=== PATIENT | female | born 1960 | race Caucasian/White ===

== ENCOUNTER 2016-11-13 12:58 | Outpatient (CLI) | payer MEDICAID ==
--- NOTE | 2016-11-14 10:55 | Ultrasound Report ---
LIMITED ABDOMINAL ULTRASOUND: 11/13/2016 CLINICAL HISTORY: A 56-year-old female who had a TRAM flap for breast reconstruction surgery. The T BRENNAN flap involved the lower half of the abdomen with a mesh placed along the anterior aspect of the a bdominal wall. The left side of the surgical incision site in the lower half of the abdomen showed d elayed healing. Patient had subsequently developed pain and a mass in this region. Present ultrasou nd is being done to evaluate this mass. TECHNIQUE: Real-time scanning was performed with floor representative static images obtained. FINDINGS: Along the left side of the prior hernia repair in the lower half of the abdomen below the level of the umbilicus, the mesh appears to be mildly elevated from the anterior abdominal wall. Thi s elevation amounts to 0.4 cm. There is a small break in the most lateral aspect of this mesh along the left side of the abdomen. The defect in periphery of this mesh shows a 2 mm gap. Immediately anterior and posterior to the elevated portion of the mesh is noted a fluid collection. The size of this fluid collection is 3.25 x 1 x 2.24 cm. It may represent a seroma. Secondary possi bility is an area of fat necrosis within the subcutaneous soft tissues in and about the mesh. The anterior abdominal wall beneath the mesh appears intact. No evidence of a ventral or incisional hernia is seen. IMPRESSION: 1. EXAMINATION IS NEGATIVE FOR AN INCISIONAL OR VENTRAL HERNIA. 2. THERE IS SURGICAL MESH NOTED ACROSS THE LOWER HALF OF THE ABDOMEN INFERIOR TO THE UMBILICUS. THE LEFT SIDE OF THIS MESH APPEARS TO BE ELEVATED WITH A SMALL BREAK IN THE LEFT LATERAL ASPECT OF THE M ESH. THE MESH ALONG THE LEFT LATERAL HALF OF THE LOWER ABDOMEN APPEARS ELEVATED. SURROUNDING THE ME SH ALONG THE LEFT LOWER HALF OF THE ABDOMEN IS A FLUID COLLECTION MEASURING 3.25 X 1 X 2.24 CM. THIS FLUID COLLECTION MOST LIKELY REPRESENTS A SEROMA OR AREA OF FAT NECROSIS. JOB #: [id number] EXT JOB #:[id number]
== END 2016-11-13 12:59 | disposition home or self-care (01) ==
LOC: DI 12:58
PROVIDERS: ATTEND Nurse Practitioner Family
DX: T85.618A Breakdown (mechanical) of other specified internal prosthetic devices, implants and grafts, initial encounter (principal)
CPT/HCPCS: 76705

== ENCOUNTER 2017-03-29 10:38 | Outpatient (CLI) | payer MEDICAID ==
--- NOTE | 2017-03-29 14:09 | XRAY Report ---
TWO VIEW CHEST: 03/29/2017 CLINICAL INDICATION: Abnormal breath sounds, history of tobacco use. COMPARISON: 10/27/2015. FINDINGS: Frontal and lateral views of the chest demonstrate a normal cardiac silhouette. The lungs are clear. No effusion or pneumothorax is present. IMPRESSION: NORMAL CHEST. JOB #: [id number] EXT JOB #:[id number]
== END 2017-03-29 10:39 | disposition home or self-care (01) ==
LOC: DI.S 10:38
PROVIDERS: ATTEND Nurse Practitioner Family
DX: R09.89 Other specified symptoms and signs involving the circulatory and respiratory systems (principal); F17.200 Nicotine dependence, unspecified, uncomplicated
CPT/HCPCS: 71020

== ENCOUNTER 2017-07-01 08:31 | Outpatient (CLI) | payer MEDICAID ==
--- NOTE | 2017-07-01 16:25 | DEXA Report ---
DEXA SCAN: 07/01/2017 CLINICAL INDICATION: Osteopenia. TECHNIQUE: Dual energy x-ray absorptiometry (DXA) was performed on a [employer] system. Regions measured are the AP spine, femoral neck, and, if needed, forearm. COMPARISON: None. In accordance with the International Society for Clinical Densitometry (ISCD) guidelines, data from previous exams may be reanalyzed using current recommendations and techniques. This is done to allow a more accurate basis for comparison with the current study. FINDINGS The data for the lumbar spine is as follows: REGION BMD (g/cm/cm) T-SCORE Z-SCORE L1 1.208 0.7 1.5 L2 1.136 -0.5 0.3 L3 1.241 0.3 1.1 L4 1.262 0.5 1.3 TOTAL 1.214 0.3 1.1 NOTE: All evaluable vertebrae are used for classification. The data for the hip is as follows: REGION BMD (g/cm/cm) T-SCORE Z-SCORE Neck 0.868 -1.2 -0.2 TOTAL 0.964 -0.3 0.3 NOTE: The femoral neck or total proximal femur, whichever is lowest, is used for classification. IMPRESSION THE WHO CLASSIFICATION BASED ON THE INTERNATIONAL REFERENCE STANDARD IS OSTEOPENIA (REFERENCE LEFT FEMORAL NECK.) THE FRACTURE RISK IS INCREASED. RECOMMENDATION: Patients with diagnosis of osteoporosis or osteopenia should have regular bone mineral density assessment. For those eligible for Medicare, routine testing is allowed once every 2 years. Testing frequency can be increased for patients who have rapidly progressing disease or for those who are receiving medical therapy to restore bone mass. COMMENT: World Health Organization (WHO) definitions for osteoporosis and osteopenia: NORMAL BMD: T-score at 1.0 or higher, fracture risk is low. OSTEOPENIA BMD: T-score between 1.0 and -2.5, fracture risk is increased. OSTEOPOROSIS BMD: T-score at 2.5 or lower, fracture risk high. National Osteoporosis Foundation recommends: 1. Obtain adequate dietary calcium (at least 1200 mg per day) and vitamin D (400 -800 international units per day). 2. Participate, as appropriate, in regular weightbearing and muscle- strengthening exercise. 3. Avoid tobacco use and reduce alcohol and caffeine intake. 4. For more detailed information see the website at www.NOF.org. TD: 07/01/2017 12:46 SUZANNA
== END 2017-07-01 08:32 | disposition home or self-care (01) ==
LOC: DI 08:31
PROVIDERS: ATTEND Specialist
DX: M85.88 Other specified disorders of bone density and structure, other site (principal)
CPT/HCPCS: 77080

== ENCOUNTER 2017-10-23 17:05 | Emergency (ER) | payer MEDICAID ==
[2017-10-23 17:19] VITALS: BP 125/90
--- NOTE | 2017-10-23 17:39 | ED Physician Documentation ---
History of Present Illness - Stated complaint Stated Complaint: VOMITING/LEAKING FROM ABD/BELLY BUTTON - Chief complaint Chief Complaint: Wound - History obtained from History obtained from: Patient, Family - History of Present Illness Timing: How many weeks ago (2) Pain level max: 5 Pain level now: 4 Improved by: drained Worsened by: palpation - Additonal information Additional information: Patient is a 57-year-old female who states that she has had redness and swelling to the lower abdomen for the past 2 weeks. Was placed on an unknown antibiotic by her doctor. States that it started draining pus today and was told to come in for evaluation. upon clinic chart review - she was on bactrim. Review of Systems Constitutional: denies: Fever, Chills Nose: denies: Rhinorrhea / runny nose, Congestion Throat: denies: Sore throat Cardiac: denies: Chest pain / pressure Respiratory: denies: Dyspnea GI: reports: Nausea, Vomiting (once yesterday, none today). 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 - Present Medications Home Medications: Ambulatory Orders Medication Instructions Recorded Confirmed Cholecalciferol (Vitamin D3) 1,000 unit PO 10/23/17 [Vitamin D3] Clindamycin HCl [Clindamycin 300MG 300 mg PO Q6H #28 capsule 10/23/17 CAP] Cyanocobalamin (Vitamin B-12) 1,000 mcg PO 10/23/17 [Vitamin B-12] [place]-3/Dha/Epa/Fish Oil [[place] 3 1 cap ORAL DAILY 10/23/17 10/23/17 500 Softgel] Pediatric Multivit #36/Iron 10 mg PO 10/23/17 [Vitalets Tablet Chewable] - Allergies Allergies/Adverse Reactions: Allergies Allergy/AdvReac Type Severity Reaction Status Date / Time liquid hydrocodone Allergy Hallucinati Uncoded 10/23/17 17:57 ons PD ED PE NORMAL - Vitals Vital signs reviewed: Yes - General General: Alert and oriented X 3, No acute distress, Well developed/nourished - HEENT HEENT: Moist mucous membranes - Neck Neck: Supple, no meningeal sign - Cardiac Cardiac: RRR - Respiratory Respiratory: No respiratory distress, Clear bilaterally - Abdomen Abdomen: Normal bowel sounds, Soft, Non tender, Non distended, Other (4 x 5 cm area of erythema with mild induration to the left lower abdomen. Appears to spontaneously drained purulent fluid.) - Back Back: No CVA TTP - Derm Derm: Warm and dry - Neuro Neuro: Alert and oriented X 3 - Psych Psych: Normal mood, Normal affect Results - Vitals Vitals: Oxygen O2 Source room - Labs Labs: Microbiology 10/23/17 17:30 Wound Culture - Final Abscess No growth Laboratory Tests 10/23/17 10/23/17 17:46 17:46 WBC 10.9 H RBC 4.49 Hgb 14.8 Hct 44.3 MCV 98.7 MCH 33.0 H MCHC 33.5 RDW 13.2 Plt Count 340 MPV 6.9 L Neut # (Auto) 5.5 Lymph # (Auto) 4.3 H [place] # (Auto) 0.6 Eos # (Auto) 0.4 Baso # (Auto) 0.1 Absolute Nucleated RBC 0.01 Nucleated RBC % 0.1 Sodium 138 Potassium 3.5 Chloride 107 Carbon Dioxide 23 Anion Gap 8.0 BUN 13 Creatinine 0.7 Estimated GFR (MDRD) 86 L Glucose 161 H Calcium 9.3 Total Bilirubin 0.2 AST 52 H ALT 109 H Alkaline Phosphatase 150 H Total Protein 6.7 Albumin 3.6 Globulin 3.1 Albumin/Globulin Ratio 1.2 Lipase 33 - Rads (name of study) Right upper quadrant ultrasound Radiology: Prelim report reviewed, EMP read contemporaneously, See rad report ( Gallstones. No sonographic evidence of acute cholecystitis. Probable adenomyomatosis of the gallbladder. Mild fatty liver. No mass. Normal pancreas of the common bile duct.) PD MEDICAL DECISION MAKING - ED course Complexity details: reviewed results, re-evaluated patient, considered differential, d/w patient, d/w family ED course: Patient is a 57-year-old female with a mild cellulitis to the left lower abdominal wall. No evidence of intraperitoneal infection. Did have an abscess which appears to spontaneously drained. No further abscess to drain at this time. Did have elevations of her liver function tests, therefore a ultrasound was ordered which shows gallstones and adenomyomatosis, but no other acute findings. No acute cholecystitis. Will place on antibiotics and follow-up closely with her doctor. Patient counseled regarding signs and symptoms for which I believe and urgent re-evaluation would be necessary. Patient with good understanding of and agreement to plan and is comfortable going home at this time This document was made in part using voice recognition software. While efforts are made to proofread this document, sound alike and grammatical errors may occur. - Sepsis Event Vital Signs: Oxygen O2 Source room Departure - Departure Disposition: Home, Self Care Clinical Impression: Cellulitis and abscess of trunk Condition: Good Instructions: ED Abscess IandD, ED Infec Skin Cellulitis Follow-Up: Irena Blood ARNP [Primary Care Provider] - Within 3 Days Prescriptions: Clindamycin HCl [Clindamycin 300MG CAP] 300 mg PO Q6H #28 capsule Comments: Take all antibiotics until gone. Return if you worsen. You do have mildly elevated liver tests as well as gallstones in your gallbladder. It does not appear infected at this time. Return if you develop right upper quadrant pain, persistent vomiting or fevers. Discharge Date/Time: 10/23/17 19:43
[2017-10-23 17:52] LABS: BASOPHILS # (AUTO) 0.1 10^3/uL (0.0-0.1); BASOPHILS % (AUTO) 1.3 %; EOSINOPHILS # (AUTO) 0.4 10^3/uL (0.0-0.7); EOSINOPHILS % (AUTO) 3.4 %; HGB - HEMOGLOBIN 14.8 g/dL (12.0-16.0); LYMPHOCYTES # (AUTO) 4.3 10^3/uL (1.5-3.5); LYMPHOCYTES % (AUTO) 39.4 %; MEAN CORPUSCULAR HGB CONC 33.5 g/dL (32.0-36.0); MEAN CORPUSCULAR VOLUME 98.7 fL (81.0-99.0); MEAN PLATELET VOLUME 6.9 fL (7.9-10.8); MONOCYTES # (AUTO) 0.6 10^3/uL (0.0-1.0); MONOCYTES % (AUTO) 5.7 %; NEUTROPHILS # (AUTO) 5.5 10^3/uL (1.5-6.6); NEUTROPHILS % (AUTO) 50.2 %; PLT - PLATELET COUNT 340 10^3/uL (130-450); RED BLOOD COUNT 4.49 10^6/uL (4.20-5.40); RED CELL DISTRIBUTION WIDTH 13.2 % (12.0-15.0); WHITE BLOOD COUNT 10.9 x10^3/uL (4.8-10.8)
[2017-10-23 18:08] LABS: ALBUMIN 3.6 g/dL (3.2-5.5); ALBUMIN/GLOBULIN RATIO 1.2 (1.0-2.2); BILIRUBIN,TOTAL 0.2 mg/dL (0.2-1.0); CALCIUM 9.3 mg/dL (8.5-10.3); CREATININE 0.7 mg/dL (0.4-1.0); TOTAL PROTEIN 6.7 g/dL (6.7-8.2)
[2017-10-23] MEDS ORDERED: LIDOCAINE 1% 2 ML VIAL SUBQ ONE (19:26)
[2017-10-23] MEDS ORDERED: cefTRIAXone 1 GM VIAL IM STA (19:26)
--- NOTE | 2017-10-23 19:50 | Ultrasound Report ---
Procedure Date: 10/23/2017 Accession Number: [id number] / [id number] Procedure: US - Abdomen Limited CPT Code: FULL RESULT: EXAM: ABDOMEN ULTRASOUND LIMITED, RIGHT UPPER QUADRANT. EXAM DATE: 10/23/2017 07:14 PM. CLINICAL HISTORY: Right upper quadrant pain, elevated LFTs. COMPARISON: None. TECHNIQUE: Real-time scanning was performed with static images obtained. FINDINGS: Liver: Liver parenchyma is heterogeneous and moderately hyperechoic. No discrete liver masses or intrahepatic bile duct dilation. However, evaluation for masses is limited secondary to the echogenicity. 16.6 cm. Main portal vein flow: Hepatopetal. Gallbladder: 0.4 mm non-mobile echogenic focus adherent to the gallbladder wall with associated ringdown artifact. Multiple gallstones with sludge. No gallbladder wall thickening or pericholecystic fluid. Per report, the patient had a negative sonographic Stewart sign. Biliary System: CBD measures 4 mm. No intrahepatic or extrahepatic ductal dilatation. Pancreas: Normal. Right kidney: 10.8 cm. No hydronephrosis. Other: None. IMPRESSION: 1. Gallstones. No sonographic evidence of acute cholecystitis. Probable adenomyomatosis of the gallbladder. 2. Mildly fatty liver. No mass. Normal pancreas and common bile duct. RADIA
== END 2017-10-23 19:43 | disposition home or self-care (01) ==
LOC: ED 17:05
DX: L03.319 Cellulitis of trunk, unspecified (principal); R74.8 Abnormal levels of other serum enzymes; K80.80 Other cholelithiasis without obstruction; K76.0 Fatty (change of) liver, not elsewhere classified; K82.8 Other specified diseases of gallbladder
CPT/HCPCS: 36415; 76705; 80053; 83690; 85025; 87070; 87205; 96372; 99283

== ENCOUNTER 2017-10-29 13:03 | Outpatient (CLI) | payer MEDICAID | END 2017-10-29 13:04 | disposition home or self-care (01) | LOC: LAB.R 13:03 | PROVIDERS: ATTEND Nurse Practitioner Family | DX: L08.9 Local infection of the skin and subcutaneous tissue, unspecified (principal) | CPT/HCPCS: 87070; 87205 ==

== ENCOUNTER 2018-04-12 20:50 | Emergency (ER) | payer SELFPAY ==
--- NOTE | 2018-04-12 21:03 | ED Physician Documentation ---
History of Present Illness - Stated complaint Stated Complaint: SWOLLEN FOREHEAD/FACE - Chief complaint Chief Complaint: Allergic Rx - History obtained from History obtained from: Patient - History of Present Illness Timing: How many days ago (2) Pain level now: 8 Improved by: nothing Worsened by: palpation (tender to touch) - Additonal information Additional information: 2 days ago, patient noticed raised area of redness on her forehead with small, clear blisters. She popped the blisters and clear fluids was expressed. Since then (over past 2 days), the area of raised redness has spread across most of forehead and down to left periorbit. She notes tender, swollen lymph nodes beh ind both ears, worse on left. 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 - Past Surgical History Past Surgical History: Yes General: Other /WORKPLACE TRAINER AND ASSESSOR: Mastectomy - Present Medications Home Medications: Ambulatory Orders Medication Instructions Recorded Confirmed Cholecalciferol (Vitamin D3) 1,000 unit PO 10/23/17 [Vitamin D3] Cyanocobalamin (Vitamin B-12) 1,000 mcg PO 10/23/17 [Vitamin B-12] [place]-3/Dha/Epa/Fish Oil [[place] 3 1 cap ORAL DAILY 10/23/17 10/23/17 500 Softgel] Pediatric Multivit #36/Iron 10 mg PO 10/23/17 [Vitalets Tablet Chewable] Cephalexin [Keflex] 500 mg PO Q6H #28 capsule 04/12/18 Sulfamethox/Trimeth 800/160 1 each PO BID #14 tablet 04/12/18 [Bactrim Ds 800/160] - Allergies Allergies/Adverse Reactions: Allergies Allergy/AdvReac Type Severity Reaction Status Date / Time liquid hydrocodone Allergy Hallucinati Uncoded 04/12/18 21:01 ons - Social History Does the pt smoke?: Yes Smoking Status: Current every day smoker Does the pt have substance abuse?: No PD ED PE NORMAL - Vitals Vital signs reviewed: Yes - General General: Alert and oriented X 3, No acute distress, Well developed/nourished - HEENT HEENT: PERRL, EOMI - Neck Neck: Supple, no meningeal sign PD ED PE EXPANDED - HEENT HEENT Visual: 1 - rash (confluent, raised erythema, TTP, no fluctuance) 2 - rash (contiguous with area marked as "1": rasied erythema with sharp margins. There is left periorbital swelling, predominantly upper lid) - Derm Derm: Rash (as documented under "HEENT") Results - Vitals Vitals: Vital Signs - 24 hr 04/12/18 04/12/18 20:56 21:42 Temperature 36.8 C 36.4 C L Heart Rate 110 H 107 H Respiratory 18 18 Rate Blood Pressure 127/82 H 124/87 H O2 Saturation 97 96 Oxygen O2 Source Room air PD MEDICAL DECISION MAKING - ED course Complexity details: considered differential, d/w patient ED course: exam is c/w facial cellulitis. crosses midline and only a single ruptured bulla (thus not c/w zoster). Vision is not affected, there is no proptosis, extraocular muscles are intact, and patient denies eye pain (thus not s/o orbital cellulitis). No emergent testing indicated at this time, and patient understands she is to return immediately if worse in any way including development of new signs/symptoms (such as fever, visual changes) Departure - Departure Disposition: 01 Home, Self Care Clinical Impression: Cellulitis of face Condition: Good Instructions: ED Cellulitis Facial Follow-Up: Irena Blood FILLING LAYER UP [Primary Care Provider] - (3-4 days if not improving) Prescriptions: Cephalexin [Keflex] 500 mg PO Q6H #28 capsule Sulfamethox/Trimeth 800/160 [Bactrim Ds 800/160] 1 each PO BID #14 tablet Discharge Date/Time: 04/12/18 21:44
[2018-04-12] MEDS ORDERED: LIDOCAINE 1% 2 ML VIAL SUBQ ONE (21:19)
[2018-04-12] MEDS ORDERED: cefTRIAXone 1 GM VIAL IM STA (21:19)
[2018-04-12] MEDS ORDERED: SULFAMETH/TRIMETH DS 800/160 MG TABLET PO STA (21:20)
[2018-04-12 21:50] VITALS: BP 124/87
== END 2018-04-12 21:44 | disposition home or self-care (01) ==
LOC: ED 20:50
DX: L03.211 Cellulitis of face (principal); F17.200 Nicotine dependence, unspecified, uncomplicated
CPT/HCPCS: 96372; 99283; A9270

== ENCOUNTER 2018-04-15 05:18 | Observation (INO) | payer SELFPAY ==
[2018-04-15] MEDS ORDERED: CLINDAMYCIN 600 MG/50 ML 50 ML IV ONE (05:45)
--- NOTE | 2018-04-15 05:48 | ED Physician Documentation ---
History of Present Illness - Stated complaint Stated Complaint: FELA EYE SWELLING - Chief complaint Chief Complaint: General - Additonal information Additional information: hx from pt 57 y/o f 4 days ago had a headache and red line to L forehead - no trauma, no insect bite, no new soaps detergent lotions etc next day has blisters and scabs and erythema seen in ED, dx facial cellulitis, rx bactrim keflex she has had 2 + days of compliance with bactrim and keflex but sx persist and are worse no fever she has no insurance and is worried about cost Review of Systems Constitutional: denies: Fever Cardiac: denies: Chest pain / pressure Respiratory: denies: Dyspnea Skin: reports: Rash PD PAST MEDICAL HISTORY - Past Medical History Past Medical History: Yes Cardiovascular: None Respiratory: None Neuro: None Endocrine/Autoimmune: None GI: None 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, Breast cancer : None HEENT: None Psych: None Musculoskeletal: None Derm: None - Past Surgical History Past Surgical History: Yes General: Other /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: Mastectomy - Present Medications Home Medications: Ambulatory Orders Medication Instructions Recorded Confirmed Cholecalciferol (Vitamin D3) 1,000 unit PO 10/23/17 [Vitamin D3] Cyanocobalamin (Vitamin B-12) 1,000 mcg PO 10/23/17 [Vitamin B-12] [place]-3/Dha/Epa/Fish Oil [[place] 3 1 cap ORAL DAILY 10/23/17 10/23/17 500 Softgel] Pediatric Multivit #36/Iron 10 mg PO 10/23/17 [Vitalets Tablet Chewable] Cephalexin [Keflex] 500 mg PO Q6H #28 capsule 04/12/18 Sulfamethox/Trimeth 800/160 1 each PO BID #14 tablet 04/12/18 [Bactrim Ds 800/160] Clindamycin HCl [Clindamycin 300MG 300 mg PO Q6H 7 Days capsule 04/15/18 CAP] Saccharomyces Boulardii [Florastor] 500 mg PO BID #40 capsule 04/15/18 - Allergies Allergies/Adverse Reactions: Allergies Allergy/AdvReac Type Severity Reaction Status Date / Time liquid hydrocodone Allergy Hallucinati Uncoded 04/15/18 05:30 ons - Social History Does the pt smoke?: Yes Smoking Status: Current every day smoker Does the pt drink ETOH?: Yes Does the pt have substance abuse?: No - Immunizations Immunizations are current?: Yes - POLST Patient has POLST: No PD ED PE NORMAL - Vitals Vital signs reviewed: Yes - HEENT HEENT: Other (marked facial edema wramth and erythema, primarily to upper face - eyelids up and left > right, some regions of eschar with yellow crusting c/w strep, lids almost swolln shut but when held open PERRL no proptosis and EOMI s pain, no crepitus or necrosis) - Neck Neck: Supple, no meningeal sign - Cardiac Cardiac: RRR, No murmur - Respiratory Respiratory: No respiratory distress, Clear bilaterally Results - Vitals Vitals: Vital Signs - 24 hr 04/15/18 04/15/18 05:28 06:23 Temperature 36.5 C Heart Rate 101 H 75 Respiratory 17 15 Rate Blood Pressure 120/71 102/70 O2 Saturation 98 93 Oxygen O2 Source Room air - Labs Labs: Laboratory Tests 04/15/18 04/15/18 05:50 05:50 WBC 8.3 RBC 4.78 Hgb 16.2 H Hct 45.6 MCV 95.3 MCH 33.8 H MCHC 35.4 RDW 13.0 Plt Count 272 MPV 6.9 L Neut # (Auto) 4.9 Lymph # (Auto) 2.2 [place] # (Auto) 0.8 Eos # (Auto) 0.3 Baso # (Auto) 0.1 Absolute Nucleated RBC 0.01 Nucleated RBC % 0.1 Sodium 137 Potassium 3.6 Chloride 106 Carbon Dioxide 20 L Anion Gap 11.0 BUN 12 Creatinine 0.9 Estimated GFR (MDRD) 64 L Glucose 123 H Calcium 9.0 PD MEDICAL DECISION MAKING - ED course ED course: facial cellulitis, most c.w staph or strep exam not c/w orbital cellulitis no ACEVES now to suggest intracranial extension complication has worsened after 2 days of comlaint tx with bactrim fkeflex I suggested admit for IV ab but pt vehemently declines 2/2 expense so will tx IV clinda and change PO meds to clinda and close fup with PMD pt clearly understands my recommendation to be admitted Departure - Departure Clinical Impression: Cellulitis of face Condition: Fair Instructions: ED Cellulitis Facial Follow-Up: Irena Blood ARNP [Primary Care Provider] - ( for a recheck after 2 ER visits) Prescriptions: Clindamycin HCl [Clindamycin 300MG CAP] 300 mg PO Q6H 7 Days capsule Saccharomyces Boulardii [Florastor] 500 mg PO BID #40 capsule Comments: I recommended admission for IV antibiotics but you declined. By not staying for IV antibiotics you are risking worsening of the infection, possible spread to the eyes or brain or blood stream, worsening disease process, even sepsis or etc. We gave you a dose of IV antibiotics in the ER And have prescribed oral clindamycin for you to take at home instead of the bactrim and keflex previously prescribed Be sure to take a probiotic while on clindamycin to prevent diarrhea Also take claritin 10 mg every day in case there is an allergic component to the swelling Follow up with your PMD for a recheck Return if worse in any way
[2018-04-15 05:54] LABS: BASOPHILS # (AUTO) 0.1 10^3/uL (0.0-0.1); BASOPHILS % (AUTO) 1.2 %; EOSINOPHILS # (AUTO) 0.3 10^3/uL (0.0-0.7); EOSINOPHILS % (AUTO) 4.2 %; HGB - HEMOGLOBIN 16.2 g/dL (12.0-16.0); LYMPHOCYTES # (AUTO) 2.2 10^3/uL (1.5-3.5); LYMPHOCYTES % (AUTO) 26.6 %; MEAN CORPUSCULAR HEMOGLOBIN 33.8 pg (27.0-31.0); MEAN CORPUSCULAR HGB CONC 35.4 g/dL (32.0-36.0); MEAN CORPUSCULAR VOLUME 95.3 fL (81.0-99.0); MEAN PLATELET VOLUME 6.9 fL (7.9-10.8); MONOCYTES # (AUTO) 0.8 10^3/uL (0.0-1.0); MONOCYTES % (AUTO) 9.2 %; NEUTROPHILS # (AUTO) 4.9 10^3/uL (1.5-6.6); NEUTROPHILS % (AUTO) 58.8 %; PLT - PLATELET COUNT 272 10^3/uL (130-450); RED BLOOD COUNT 4.78 10^6/uL (4.20-5.40); WHITE BLOOD COUNT 8.3 x10^3/uL (4.8-10.8)
[2018-04-15] MEDS ORDERED: LORATADINE 10 MG TABLET PO STA (05:58)
[2018-04-15 06:20] LABS: CREATININE 0.9 mg/dL (0.4-1.0)
[2018-04-15] MEDS ORDERED: oxyCODONE 5 MG TABLET PO PRN ×2 (07:39)
[2018-04-15] MEDS ORDERED: ACETAMINOPHEN 325 MG TABLET PO PRN (07:39)
[2018-04-15] MEDS ORDERED: ONDANSETRON 4 MG/2 ML VIAL IVP PRN (07:39)
[2018-04-15] MEDS ORDERED: ZOLPIDEM 5 MG TABLET PO PRN (07:39)
[2018-04-15] MEDS ORDERED: PROCHLORPERAZINE 10 MG/2 ML VIAL IVP PRN (07:39)
[2018-04-15] MEDS ORDERED: SODIUM CHLORIDE FLUSH 0.9% 10 ML SYRINGE IVP PRN (07:39)
[2018-04-15] MEDS ORDERED: SODIUM CHLORIDE 0.9% IV PRN (08:00)
[2018-04-15] MEDS ORDERED: VANCOMYCIN PER PHARMACY IV PRN (08:00)
[2018-04-15] MEDS: SODIUM CHLORIDE 0.9% 1,000 ML IV SCH ×2 (08:32→21:32)
[2018-04-15] MEDS: PIPERACILLIN/TAZOBACTAM 3.375 GM in SODIUM CHLORIDE 0.9% MINIBAG 100 ML IV SCH ×3 (08:33→18:00)
[2018-04-15] MEDS: SODIUM CHLORIDE FLUSH 0.9% 10 ML SYRINGE IVP SCH ×2 (08:33→18:00)
[2018-04-15] MEDS ORDERED: diphenhydrAMINE 25 MG CAPSULE PO PRN (09:59)
[2018-04-15] MEDS ORDERED: VANCOMYCIN INJ 1 GM, VANCOMYCIN INJ 500 MG in SODIUM CHLORIDE 0.9% 500 ML IV ONE (10:00)
[2018-04-15] MEDS: ENOXAPARIN 40 MG/0.4 ML SYRINGE SUBQ SCH (10:01)
[2018-04-15] MEDS: FAMOTIDINE 20 MG TABLET PO SCH ×2 (10:01→20:37)
[2018-04-15] MEDS: SACCHAROMYCES BOULARDII 250 MG CAPSULE PO SCH ×2 (10:01→17:59)
[2018-04-15] MEDS: POLYETHYLENE GLYCOL 3350 17 GM PACKET PO SCH (10:02)
--- NOTE | 2018-04-15 16:50 | HISTORY & PHYSICAL EXAMINATION ---
Chief Complaint - Chief Complaint Chief Complaint: Facial redness and swelling History of Present Illness - Admitted From Admitted From:: Emergency department - History Obtained From Records Reviewed: Yes History obtained from: Patient Exam Limitations: None - History of Present Illness HPI Comment/Other: Patient is a very pleasant 57-year-old female with a past medical history of breast cancer status post double mastectomy and chemotherapy 6 years ago who presented to the emergency department with a chief complaint of facial swelling and redness. The patient states that about 1 week ago she banged her forehead on the side of a coffee table while picking something up. She states that she did not make much of it then but did have a small cut. She states that morning she woke up with a headache. She states that when she looked in the mirror she noticed a line across her forehead. She states by later that day the line became a bump. She thought that this was consistent with her bumping her head. She states that the next morning when she woke up the swelling in her forehead had spread across the forehead and was now tender, hot and very swollen. She states that she went to the emergency department that night. In the emergency department she was prescribed 2 antibiotics Bactrim and Keflex. She was told that this swelling and redness may get worse before it gets better. She states that she returned home and over the next 2 days she had significant progression in the swelling and redness and now had swelling around her eyelids and was having difficulty opening her left eye. The patient denies any pain with movement of her eyes. She denies having any fevers or chills. She denies any nausea, vomiting, muscle aches or pains. She denies any changes in her visual acuity. The patient states that she does not have any headache, photophobia or phonophobia. She returned to the emergency department today as her symptoms were not improving. Patient denies any blurred vision, runny nose, sore throat, nasal congestion, difficulty swallowing, changes in her appetite, neck swelling, hoarseness, fevers, chills, chest pain, shortness of air, orthopnea, PND, increased lower extremity swelling, abdominal pain, diarrhea, constipation, increased urinary urgency, frequency or dysuria. The patient denies any joint pains, joint swelling, muscle aches, back pain, neck stiffness, recent unintentional weight loss, night sweats or any focal neurologic deficits. On presentation to the emergency department the patient was afebrile, tachycardic, normotensive and had no respiratory distress. The patient's lab work revealed no leukocytosis. No lactic acid or blood cultures were drawn in the emergency department. It appeared initially that the patient would not want to be hospitalized as she does not have health insurance. Therefore the emergency department physician shows to give her 1 dose of IV clindamycin with the thought that she would be discharged home. The patient however did have a significant amount of cellulitis and the emergency room physician suggested to her that she should be hospitalized for IV antibiotics overnight to ensure that her swelling and cellulitis improved. The patient did not initially agree but her son and convinced her otherwise. The patient was placed in observation for IV antibiotics and treatment of a facial cellulitis. 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 Social History Notes: The patient lives in [place], [place]. She lives with her . She has been living on [facility] for the past 20 years. She is originally from [facility] and moved to the [facility] 38 years ago. She has 1 son who is a college student at [employer]. The patient is a current smoker and smokes 10-15 cigarettes a day. She has been doing so for the last 40 years. She does not drink alcohol or use any illicit drugs. - POLST Patient has POLST: No POLST Status: Full Code Meds/Allgy - Home Medications Home Medications: Ambulatory Orders Medication Instructions Recorded Confirmed Cholecalciferol (Vitamin D3) 1,000 unit PO DAILY 10/23/17 04/15/18 [Vitamin D3] Cyanocobalamin (Vitamin B-12) 1,000 mcg PO DAILY 10/23/17 04/15/18 [Vitamin B-12] [place]-3/Dha/Epa/Fish Oil [[place] 3 1 cap ORAL DAILY 10/23/17 04/15/18 500 Softgel] [place] Orotate 20mg 20 mg PO DAILY 04/15/18 04/15/18 - Allergies Allergies/Adverse Reactions: Allergies Allergy/AdvReac Type Severity Reaction Status Date / Time hydrocodone AdvReac Intermediate Hallucinati Verified 04/15/18 08:52 ons Review of Systems - Other Findings Other Findings: A comprehensive review of systems was performed the pertinent positives and negatives are stated above in the HPI and the remainder of the review of systems is negative. Prior Level of Functionality: Patient is completely independent with her activities of daily living. Exam - Vital Signs Reviewed Vital Signs: Yes Vital Signs: Vital Signs x48h Temp Pulse Resp BP Pulse Ox 04/15/18 16:00 36.8 C 87 16 103/67 93 - Physical Exam General Appearance: positive: No acute distress, Alert Eyes Bilateral: positive: PERRL, EOMI, Conjunctivae nml, No scleral icterus, Other (The patient has significant swelling over bilateral eyelids with difficulty opening her eyes. She does not have any pain on movement of her eyes. She has erythema surrounding her eyelids.) ENT: positive: ENT inspection nml, Pharynx nml, No signs of dehydration. negative: Purulent nasal drainage, Pharyngeal erythema, Oral lesions Neck: positive: Nml inspection, Thyroid nml, No JVD, Trachea midline. negative: Thyromegaly, Lymphadenopathy (R), Lymphadenopathy (L) Respiratory: positive: Chest non-tender, No respiratory distress, Breath sounds nml. negative: Wheezes, Rales, Rhonchi Cardiovascular: positive: Regular rate & rhythm, No murmur, No gallop Peripheral Pulses: positive: 2+ Abdomen: positive: Non-tender, No organomegaly, Nml bowel sounds, No distention. negative: Guarding, Rebound, Hepatomegaly Back: positive: Nml inspection. negative: CVA tenderness (R), CVA tenderness (L) Skin: positive: Other (Patient has swelling, tenderness, erythema over her forehead which extends over her bilateral eyelids. This is a significant cellulitis.) Extremities: positive: Non-tender, Full ROM, Nml appearance, No pedal edema Neurologic/Psychiatric: positive: Oriented x3, CN's nml (2-12), Motor nml, Sensation nml, Mood/affect nml Conclusion/Plan - Problem List (1) Cellulitis of face Conclusion/Plan: Patient presents with facial cellulitis which has failed outpatient antibiotic treatment. The patient's cellulitis extends over her eyelids but there is no signs of orbital cellulitis. Plan: Patient will be treated with IV antibiotics vancomycin and Zosyn. If the patient's sialitis continues to worsen despite IV antibiotics we will consider a facial CT Patient will be monitored closely but currently does not show any signs of sepsis therefore She Will Be observation overnight. (2) Tobacco abuse Conclusion/Plan: Patient has a history of tobacco abuse and continues to smoke 10-15 cigarettes daily. She has been smoking for 40 years. The patient was counseled today on the adverse effects of continued tobacco abuse especially with a history of canc er. The patient understands the risks involved if she continues to smoke. She states that she will think about stopping. She will be offered a nicotine patch. (3) History of breast cancer Conclusion/Plan: The patient has history of breast cancer which is now in remission. She is status post bilateral mastectomy and chemotherapy. (4) DVT prophylaxis Conclusion/Plan: The patient will be placed on Lovenox for DVT prophylaxis while she is hospitalized. - Lab Results Fish Bones: 04/15/18 05:50 04/15/18 05:50 Other Lab Results: Laboratory Results WBC 8.3 x10^3/uL (4.8-10.8) 04/15/18 05:50 RBC 4.78 10^6/uL (4.20-5.40) 04/15/18 05:50 Hgb 16.2 g/dL (12.0-16.0) H 04/15/18 05:50 Hct 45.6 % (37.0-47.0) 04/15/18 05:50 MCV 95.3 fL (81.0-99.0) 04/15/18 05:50 MCH 33.8 pg (27.0-31.0) H 04/15/18 05:50 MCHC 35.4 g/dL (32.0-36.0) 04/15/18 05:50 RDW 13.0 % (12.0-15.0) 04/15/18 05:50 Plt Count 272 10^3/uL (130-450) 04/15/18 05:50 MPV 6.9 fL (7.9-10.8) L 04/15/18 05:50 Neut # (Auto) 4.9 10^3/uL (1.5-6.6) 04/15/18 05:50 Lymph # (Auto) 2.2 10^3/uL (1.5-3.5) 04/15/18 05:50 [place] # (Auto) 0.8 10^3/uL (0.0-1.0) 04/15/18 05:50 Eos # (Auto) 0.3 10^3/uL (0.0-0.7) 04/15/18 05:50 Baso # (Auto) 0.1 10^3/uL (0.0-0.1) 04/15/18 05:50 Absolute Nucleated RBC 0.01 x10^3/uL 04/15/18 05:50 Nucleated RBC % 0.1 /100WBC 04/15/18 05:50 Sodium 137 mmol/L (135-145) 04/15/18 05:50 Potassium 3.6 mmol/L (3.5-5.0) 04/15/18 05:50 Chloride 106 mmol/L (101-111) 04/15/18 05:50 Carbon Dioxide 20 mmol/L (21-32) L 04/15/18 05:50 Anion Gap 11.0 (6-13) 04/15/18 05:50 BUN 12 mg/dL (6-20) 04/15/18 05:50 Creatinine 0.9 mg/dL (0.4-1.0) 04/15/18 05:50 Estimated GFR (MDRD) 64 (>89) L 04/15/18 05:50 Glucose 123 mg/dL (70-100) H 04/15/18 05:50 Calcium 9.0 mg/dL (8.5-10.3) 04/15/18 05:50 Core Measures - Anticipated LOS I expect patient to be DC'd or transferred within 96 hours.: Yes - DVT/VTE - Prophylaxis VTE/DVT Prophylaxis med ordered at admit?: Yes
[2018-04-15] MEDS ORDERED: VANCOMYCIN INJ 1 GM in SODIUM CHLORIDE 0.9% 250 ML IV SCH (22:00)
[2018-04-16] MEDS: PIPERACILLIN/TAZOBACTAM 3.375 GM in SODIUM CHLORIDE 0.9% MINIBAG 100 ML IV SCH ×2 (00:54→06:08)
[2018-04-16] MEDS: SODIUM CHLORIDE FLUSH 0.9% 10 ML SYRINGE IVP SCH ×2 (01:36→08:47)
[2018-04-16 05:49] LABS: BASOPHILS # (AUTO) 0.1 10^3/uL (0.0-0.1); BASOPHILS % (AUTO) 1.2 %; EOSINOPHILS # (AUTO) 0.3 10^3/uL (0.0-0.7); EOSINOPHILS % (AUTO) 4.3 %; HGB - HEMOGLOBIN 14.7 g/dL (12.0-16.0); LYMPHOCYTES # (AUTO) 2.5 10^3/uL (1.5-3.5); LYMPHOCYTES % (AUTO) 32.5 %; MEAN CORPUSCULAR HGB CONC 34.5 g/dL (32.0-36.0); MEAN CORPUSCULAR VOLUME 95.6 fL (81.0-99.0); MONOCYTES # (AUTO) 0.8 10^3/uL (0.0-1.0); MONOCYTES % (AUTO) 9.8 %; NEUTROPHILS % (AUTO) 52.2 %; PLT - PLATELET COUNT 268 10^3/uL (130-450); RED BLOOD COUNT 4.45 10^6/uL (4.20-5.40); RED CELL DISTRIBUTION WIDTH 13.1 % (12.0-15.0); WHITE BLOOD COUNT 7.6 x10^3/uL (4.8-10.8)
[2018-04-16] MEDS: SODIUM CHLORIDE 0.9% 1,000 ML IV SCH (05:51)
[2018-04-16 05:55] LABS: CALCIUM 8.6 mg/dL (8.5-10.3); CREATININE 0.8 mg/dL (0.4-1.0)
[2018-04-16 07:45] VITALS: BP 121/73
--- NOTE | 2018-04-16 08:25 | Discharge Plan ---
Discharge Plan Disposition: Home, Self Care Condition: Fair Prescriptions: Amox/Clav 875/125 [Augmentin] 1 each PO Q12H #14 tablet Doxycycline Hyclate 100 mg PO Q12H #14 capsule Diet: Regular Activity Restrictions: Activity as Tolerated Shower Restrictions: No Driving Restrictions: No Weight Bearing: Full Weight Instruction Topics: ED Cellulitis Facial Additional Instructions or Follow Up instructions: You were admitted to the hospital with a facial cellulitis. You did not respond well to oral antibiotics at home. You have responded quite well to IV antibiotics here in the hospital. He continued to have no fever and no elevation in your white blood cell count. The cellulitis has improved enough that I feel comfortable with you going home with oral antibiotics. Given that the antibiotics that we previously prescribed were not effective I would like to change her antibiotic regimen. I am going to prescribe you Augmentin and doxycycline which you should take twice a day for the next 7 days. I would like you to follow-up with your primary care physician on Saturday if symptoms are not improving otherwise follow-up with your primary care physician after you have completed antibiotics to ensure that you do not need any further treatment. If you begin to have fevers or the infection worsens please return to the emergency department. Be sure to take probiotics with your antibiotics to help prevent diarrhea. No Smoking: If you smoke, Please STOP! Call for help. Follow-up with: Irena Blood ARNP [Primary Care Provider] - ( for a recheck after 2 ER visits)
--- NOTE | 2018-04-16 08:32 | DISCHARGE SUMMARY ---
Discharge Summary Admit Date: 04/15/18 Discharge Date: 04/16/18 Discharging Provider: Sarwat Kelly MD Primary Care Provider: Irena DELATORRE Code Status: Attempt Resuscitation Condition at Discharge: Fair Discharge Disposition: 01 Home, Self Care - DIAGNOSES Admission Diagnoses: 1. Cellulitis of face 2. Tobacco abuse 3. History of breast cancer 4. DVT prophylaxis Discharge Diagnoses with Status of Each Condition: 1. Cellulitis of face: Improving 2. Tobacco abuse: Stable 3. History of breast cancer: Stable 4. DVT prophylaxis: Stable - HPI History of Present Illness: Patient is a very pleasant 57-year-old female with a past medical history of breast cancer status post double mastectomy and chemotherapy 6 years ago who presented to the emergency department with a chief complaint of facial swelling and redness. The patient states that about 1 week ago she banged her forehead on the side of a coffee table while picking something up. She states that she did not make much of it then but did have a small cut. She states that morning she woke up with a headache. She states that when she looked in the mirror she noticed a line across her forehead. She states by later that day the line became a bump. She thought that this was consistent with her bumping her head. She states that the next morning when she woke up the swelling in her forehead had spread across the forehead and was now tender, hot and very swollen. She states that she went to the emergency department that night. In the emergency department she was prescribed 2 antibiotics Bactrim and Keflex. She was told that this swelling and redness may get worse before it gets better. She states that she returned home and over the next 2 days she had significant progression in the swelling and redness and now had swelling around her eyelids and was having difficulty opening her left eye. The patient denies any pain with movement of her eyes. She denies having any fevers or chills. She denies any nausea, vomiting, muscle aches or pains. She denies any changes in her visual acuity. The patient states that she does not have any headache, photophobia or phonophobia. She returned to the emergency department today as her symptoms were not improving. Patient denies any blurred vision, runny nose, sore throat, nasal congestion, difficulty swallowing, changes in her appetite, neck swelling, hoarseness, fevers, chills, chest pain, shortness of air, orthopnea, PND, increased lower extremity swelling, abdominal pain, diarrhea, constipation, increased urinary urgency, frequency or dysuria. The patient denies any joint pains, joint swelling, muscle aches, back pain, neck stiffness, recent unintentional weight loss, night sweats or any focal neurologic deficits. On presentation to the emergency department the patient was afebrile, tachycardic, normotensive and had no respiratory distress. The patient's lab work revealed no leukocytosis. No lactic acid or blood cultures were drawn in the emergency department. It appeared initially that the patient would not want to be hospitalized as she does not have health insurance. Therefore the emergency department physician shows to give her 1 dose of IV clindamycin with the thought that she would be discharged home. The patient however did have a significant amount of cellulitis and the emergency room physician suggested to her that she should be hospitalized for IV antibiotics overnight to ensure that her swelling and cellulitis improved. The patient did not initially agree but her son and convinced her otherwise. The patient was placed in observation for IV antibiotics and treatment of a facial cellulitis. - HOSPITAL COURSE Hospital Course: The patient was placed in observation and treated with IV antibiotics. The patient was placed on IV vancomycin and Zosyn. The patient had significant improvement in her facial cellulitis. At the time of discharge the patient still had swelling around her eyelids and of her forehead. The erythema however had significantly declined and the patient's eyelid swelling had also improved. The patient remained afebrile for 24 hours while she was hospitalized and white blood cell count continued to be in the normal range. The patient did not show any signs of systemic infection. Given that the patient did not respond well to her initial oral antibiotic regimen the patient's regimen was changed at discharge. The patient was placed on oral Augmentin and doxycycline to continue for 7 days. The patient was advised to follow-up with her primary care physician if the cellulitis has not significantly improved in the next 2 days. She was told to return to the ER if she begins to have any systemic symptoms. The patient was discharged home in stable condition and will continue with antibiotics for the next week. - ALLERGIES Allergies/Adverse Reactions: Allergies Allergy/AdvReac Type Severity Reaction Status Date / Time hydrocodone AdvReac Intermediate Hallucinati Verified 04/15/18 08:52 ons - MEDICATIONS Home Medications: Ambulatory Orders Medication Instructions Recorded Confirmed Cholecalciferol (Vitamin D3) 1,000 unit PO DAILY 10/23/17 04/15/18 [Vitamin D3] Cyanocobalamin (Vitamin B-12) 1,000 mcg PO DAILY 10/23/17 04/15/18 [Vitamin B-12] [place]-3/Dha/Epa/Fish Oil [[place] 3 1 cap ORAL DAILY 10/23/17 04/15/18 500 Softgel] [place] Orotate 20mg 20 mg PO DAILY 04/15/18 04/15/18 Amox/Clav 875/125 [Augmentin] 1 each PO Q12H #14 tablet 04/16/18 Doxycycline Hyclate 100 mg PO Q12H #14 capsule 04/16/18 - PHYSICAL EXAM AT DISCHARGE General Appearance: positive: No acute distress, Alert Eyes Bilateral: positive: Normal inspection, PERRL, EOMI, Conjunctivae nml, No scleral icterus, Other (Swelling and erythema around eyelids has improved with no signs of orbital cellulitis.) ENT: positive: ENT inspection nml, Pharynx nml, No signs of dehydration. negative: Purulent nasal drainage, Pharyngeal erythema, Oral lesions Neck: positive: Nml inspection, Thyroid nml, No JVD, Trachea midline. negative: Thyromegaly, Lymphadenopathy (R), Lymphadenopathy (L), Stiff neck, Carotid bruit, Tracheal deviation Respiratory: positive: Chest non-tender, No respiratory distress, Breath sounds nml. negative: Wheezes, Rales, Rhonchi Cardiovascular: positive: Regular rate & rhythm, No murmur, No gallop Peripheral Pulses: positive: 2+ Abdomen: positive: Non-tender, No organomegaly, Nml bowel sounds, No distention. negative: Guarding, Rebound, Hepatomegaly Back: positive: Nml inspection. negative: CVA tenderness (R), CVA tenderness (L) Skin: positive: Other (Scab on the right side of forehead with surrounding michael thema which has significantly improved on the right forehead. Swelling around eyes with erythema also improving) Extremities: positive: Non-tender, Full ROM, Nml appearance, No pedal edema Neurologic/Psychiatric: positive: Oriented x3, CN's nml (2-12), Motor nml, Sensation nml, Mood/affect nml - LABS Result Diagrams: 04/16/18 05:30 04/16/18 05:30 Other Lab Results: Laboratory Tests 04/15/18 04/15/18 04/16/18 05:50 05:50 05:30 WBC 8.3 7.6 RBC 4.78 4.45 Hgb 16.2 H 14.7 Hct 45.6 42.6 MCV 95.3 95.6 MCH 33.8 H 33.0 H MCHC 35.4 34.5 RDW 13.0 13.1 Plt Count 272 268 MPV 6.9 L 7.0 L Neut # (Auto) 4.9 4.0 Lymph # (Auto) 2.2 2.5 [place] # (Auto) 0.8 0.8 Eos # (Auto) 0.3 0.3 Baso # (Auto) 0.1 0.1 Absolute Nucleated RBC 0.01 0.01 Nucleated RBC % 0.1 0.1 Sodium 137 Potassium 3.6 Chloride 106 Carbon Dioxide 20 L Anion Gap 11.0 BUN 12 Creatinine 0.9 Estimated GFR (MDRD) 64 L Glucose 123 H Lactic Acid Calcium 9.0 04/16/18 04/16/18 05:30 05:30 WBC RBC Hgb Hct MCV MCH MCHC RDW Plt Count MPV Neut # (Auto) Lymph # (Auto) [place] # (Auto) Eos # (Auto) Baso # (Auto) Absolute Nucleated RBC Nucleated RBC % Sodium 141 Potassium 3.8 Chloride 111 Carbon Dioxide 21 Anion Gap 9.0 BUN 12 Creatinine 0.8 Estimated GFR (MDRD) 74 L Glucose 90 Lactic Acid 0.6 Calcium 8.6 - FOLLOW UP Follow Up: Patient was admitted for facial cellulitis and treated with IV antibiotics after failed outpatient treatment with oral antibiotics. After 24 hours patient had significant improvement of erythema and swelling. Patient was afebrile and had no leukocytosis. She was discharged home with oral antibiotics which were changed from her previous regimen and will continue Augmentin and doxycycline for 7 days to complete treatment. She will follow-up with her primary care physician if cellulitis is not improving or once she completes treatment. She will return to the emergency department if she begins to have systemic symptoms. - TIME SPENT Time Spent in Discharge (Minutes): 45
[2018-04-16] MEDS: SACCHAROMYCES BOULARDII 250 MG CAPSULE PO SCH (08:46)
[2018-04-16] MEDS: ENOXAPARIN 40 MG/0.4 ML SYRINGE SUBQ SCH (08:47)
[2018-04-16] MEDS: POLYETHYLENE GLYCOL 3350 17 GM PACKET PO SCH (08:47)
[2018-04-16] MEDS: FAMOTIDINE 20 MG TABLET PO SCH (08:47)
== END 2018-04-16 09:00 | disposition home or self-care (01) ==
LOC: ED 05:18 → OBS 07:40
PROVIDERS: ADMIT Internal Medicine; ATTEND Internal Medicine
DX: L03.211 Cellulitis of face (principal); F17.210 Nicotine dependence, cigarettes, uncomplicated; Z85.3 Personal history of malignant neoplasm of breast
CPT/HCPCS: 36415; 80048; 83605; 85025; 96365; 96366; 96367; 96372; 99283; 99284; A9270; G0378; J1650; J3370

== ENCOUNTER 2020-12-10 17:12 | Outpatient (CLI) | payer SELFPAY | END 2020-12-10 17:13 | disposition short-term general hospital (02) | LOC: EMS 17:12 | DX: R11.10 Vomiting, unspecified (principal); R53.1 Weakness; R32 Unspecified urinary incontinence; R15.9 Full incontinence of feces; R40.4 Transient alteration of awareness | CPT/HCPCS: A0425; A0427 ==

== ENCOUNTER 2022-07-06 04:33 | Outpatient (CLI) | payer SELFPAY | END 2022-07-06 04:34 | disposition short-term general hospital (02) | LOC: EMS 04:33 | DX: I21.3 ST elevation (STEMI) myocardial infarction of unspecified site (principal) | CPT/HCPCS: A0425; A0427 ==